=== PATIENT | female | born 1975 | race Caucasian/White ===

== ENCOUNTER 2019-10-20 21:37 | Emergency (ER) | payer MEDICARE ==
[2019-10-20] MEDS ORDERED: DiphenhydrAMINE HCL 50 MG/ML VIAL ONE (22:50)
[2019-10-20] MEDS ORDERED: PROCHLORPERAZINE EDISYLATE 10 MG/2 ML VIAL ONE (22:50)
== END 2019-10-21 12:25 | disposition home or self-care (01) ==
LOC: EDH 21:37
DX: F51.05 Insomnia due to other mental disorder (principal); F31.9 Bipolar disorder, unspecified; F41.9 Anxiety disorder, unspecified; Z88.7 Allergy status to serum and vaccine
CPT/HCPCS: 93005; 96372 ×2; 99284; J0780; J1200